=== PATIENT | male | born 1960 | race Caucasian/White ===

== ENCOUNTER 2020-07-08 17:05 | Emergency (ER) | payer BC ==
[2020-07-08 17:27] VITALS: BP 153/69; PULSE 82; TEMP 98.2; BMI 22.6
== END 2020-07-08 20:35 | disposition home or self-care (01) ==
LOC: JERFT 17:05
DX: S42.301A Unspecified fracture of shaft of humerus, right arm, initial encounter for closed fracture (principal); W10.8XXA Fall (on) (from) other stairs and steps, initial encounter
CPT/HCPCS: 73030-TC-RT-FY; 73070-TC-RT-FY; 99284-25